=== PATIENT | female | born 2000 | race American Indian/Alaskan Native ===

== ENCOUNTER 2021-11-04 18:43 | Emergency (ER) | payer OTHER ==
[2021-11-04 19:03] VITALS: BP 139/89
== END 2021-11-05 01:32 | disposition left against medical advice (07) ==
LOC: ED 18:43
DX: O20.8 Other hemorrhage in early pregnancy (principal); Z53.21 Procedure and treatment not carried out due to patient leaving prior to being seen by health care provider; Z3A.00 Weeks of gestation of pregnancy not specified